=== PATIENT | female | born 1955 | race Caucasian/White ===

== ENCOUNTER 2025-01-10 06:12 | Day surgery (SDC) | payer MEDICARE ==
--- NOTE | 2025-01-03 11:34 | ELECTROCARDIOGRAPH REPORT ---
[facility] Test Date: 2025-01-03 Test Time: 11:29:27 Pat Name: GREG SOTO Department: [facility]-PRE-OP Patient ID: [id number] Room: Gender: F Business Excellence Leader: BREE : 1955 Requested By: WILLIAM SUNG Order Number: [id number] Reading MD: Dr. ILAN Sylvester Measurements Intervals [place] Rate: 71 P: 3 HI: 155 QRS: -33 QRSD: 102 T: 17 QT: 389 QTc: 423 Interpretive Statements Sinus rhythm Left axis deviation Electronically Signed On 01-03-2025 16:39:[address] ILAN Sylvester Please click the below link to view image of tracing.
[2025-01-03 11:52] LABS: MEAN PLATELET VOLUME 9.4 FL (7.4-10.4); PRE OP HEMATOCRIT 40.9 % (35.0-45.0); PRE OP HEMOGLOBIN 13.6 g/dL (12.0-16.0); PRE OP PLATELET COUNT 179 X10'3 (140-440); PRE OP WHITE BLOOD COUNT 3.4 10'3 (4.8-10.8); RED CELL DISTRIBUTION WIDTH 14.0 % (11.5-14.5)
[2025-01-03 12:06] LABS: CREATININE 0.74 MG/DL (0.40-0.90); PRE OP ALT 22 U/L (30-65); PRE OP ANION GAP 8 (8-16); PRE OP AST 17 U/L (10-37); PRE OP BILIRUB, TOTAL 0.6 MG/DL (0.0-1.0); PRE OP GLUCOSE 93 MG/DL (70-104); PRE OP POTASSIUM 3.8 MMOL/L (3.4-5.1); PRE OP SODIUM 143 MMOL/L (135-145); TOTAL CARBON DIOXIDE 28.4 MMOL/L (24-32); eGFR 77 ML/MIN
[2025-01-10] VITALS (10 sets, daily range): BP systolic 148–178; BP diastolic 85–96; PULSE 71–109; RESP 13–21; TEMP 99.4; O2SAT 95–100
[~2025-01-10] VITALS: Ht 160 cm; Wt 79.8 kg
[~2025-01-10 06:12] MED LIST: ACET-2971 PO; CHOL500044 PO; CO Q10 PO; LISI20TA28 PO; MAGN400C PO; MOME45CR3 TOP; ROSU10TA72 PO; SAM-E PO; ringers solution, lacted 1,000 ML IV SCH
[2025-01-10] MEDS ORDERED: LIDOcaine 1% (10mg/ml)w/preservative inj. 20ml MDV ONE (06:52)
[2025-01-10] MEDS ORDERED: methylene blue (5mg/ml) 50mg/10ml ampul IV ONE (06:52)
[2025-01-10] MEDS ORDERED: BUPIVAcaine 2.5mg/ml inj 50ml vial (contains preservative) ONE (06:53)
[2025-01-10] MEDS ORDERED: ringers solution, lacted 1,000 ML IV SCH (08:05)
[2025-01-10] MEDS ORDERED: hydrALAZINE 20mg/ml inj. IV PRN (08:05)
[2025-01-10] MEDS ORDERED: labetalol 20mg/4ml (5mg/ml) syringe IV PRN (08:05)
[2025-01-10] MEDS ORDERED: ondansetron/PF 4mg/2ml inj IV PRN (08:05)
[2025-01-10] MEDS ORDERED: morphine 4 MG/ML inj SYRINge IV PRN (08:05)
[2025-01-10] MEDS ORDERED: HYDROmorphone/PF 0.2 MG/ML SYRINGE IV PRN ×2 (08:05)
[2025-01-10] MEDS ORDERED: meperidine/PF 25mg/ml syringe IV PRN (08:05)
[2025-01-10] MEDS ORDERED: midazolam 1 mg/ML 2ml injection ONE (08:07)
[2025-01-10] MEDS: LIDOcaine 1% 30ml preserv. free vial IJ ONE (08:46)
[2025-01-10] MEDS ORDERED: ePHEDrine 50MG/ML INJ. ONE (09:18)
[2025-01-10] MEDS ORDERED: propofol inj 20 ML IV ONE ×2 (09:18→09:19)
[2025-01-10] MEDS ORDERED: LIDOcaine 2% (20mg/ml) 5ml vial ONE (09:18)
[2025-01-10] MEDS ORDERED: fentaNYL /PF 50mcg/ml 5ml ampule ONE (09:18)
[2025-01-10] MEDS ORDERED: 0.9 % SODIUM CHLORIDE 10 ML VIAL ONE (09:18)
[2025-01-10] MEDS ORDERED: dexamethasone sod phosphate 4mg/ml inj. ONE (09:18)
[2025-01-10] MEDS ORDERED: ondansetron/PF 4mg/2ml inj ONE (09:19)
--- NOTE | 2025-01-10 10:27 | OPERATIVE REPORT ---
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 William Sung Lunchroom Mother technology officer Anesthesiologist: Yamil Wray Type of Anesthesia: General Findings: CHARLEEN marker and top hat and CHARLEEN marker and suzanne marker detected on both specimen radiograph images Complications None Estimated Blood Loss: Less than 10 mL Specimen Removed: Left breast 3:00 CHARLEEN localized lumpectomy suture marked short superior, long lateral, double deep Left breast inferior margin suture anaya final margin Left breast 8:00 a.m. CHARLEEN localized lumpectomy suture marked short superior, long lateral, double deep Description of Procedure: Maria is a 69-year-old female who was diagnosed with ductal carcinoma in Situ, multiple multifocal. She was seen and evaluated in my office and informed consent was obtained for breast conservation. She is a Oriental orthodox so we discussed the risks of bleeding and the non blood product options for hemostasis. She had two CHARLEEN markers placed by the radiologist prior to surgery in preparation for excision. She was marked in the preoperative holding area on the left breast with my initials. She was taken to the OR and placed on the table in supine position with the arms extended. I scanned the 3:00 and 8:00 positions with the CHARLEEN probe and marked the skin. The patient was prepped and draped in a sterile fashion a time-out was performed and agreed upon. She had 2 g of Ancef that was administered. She also had SCDs in the lower extremities. I started with the 8:00 site and made a proposed incision at the inframammary crease far medially. Once the me the injection with 1% lidocaine I made the incision with a 10 blade extended with the Bovie electrocautery through the deep dermal layer. Noble's were placed on the incision site for visualization I dissected the superior and inferior flaps. I used the probe to identify the signal. Once the signal was obtained. I cauterized around that area. Based on my discussion with the radiologist the calcifications were approximately 1.5 cm medial to the bar marker and the CHARLEEN marker. I completely excised the area and hemostasis was achieved with Bovie electrocautery. The specimen was removed from the cavity and oriented with short stitch superior, long suture lateral, double suture deep. It was placed in the specimen radiograph board and an image was taken in the specimen radiograph machine. Two views were taken. The markers look like they were in adequate position. The specimen was placed in formalin. I turned my attention to the 3:00 site. 1% lidocaine was injected at the proposed incision site. I made my incision with a 10 blade. I dissected through the deep dermal layer with the cautery. Noble retractors were placed on the incision for visualization. I scanned the cavity with the probe and identified the signal. The top ladies' hat trimmer was medial to the CHARLEEN marker and calcifications. I completely excised the areas encompassing the CHARLEEN marker, calcifications and the top had marker. The specimen was secured to the specimen board and placed in the specimen radiograph. Both markers were retrieved. The CHARLEEN marker in the calcifications were closed with the inferior border. I additionally took an inferior margin for wider margin. The specimen was removed and the suture marked the final margin. The cavity was irrigated and hemostasis was achieved with Bovie electrocautery. Both cavities were closed with 3-0 Vicryl interrupted sutures and 4-0 Monocryl running subcuticular stitch. 0.25% Marcaine was injected at both sides. The areas were cleaned and Dermabond was placed over the incisions and dressings. Patient tolerated procedure well was taken to recovery in stable condition. All needle and sponge counts were correct. Counts repoted as correct: Yes WILLIAM SUNG DO Jan 10, 2025 10:27
[2025-01-10] MEDS: acetaminophen 1,000mg/100ml IV 100 ML IV PRN (10:40)
== END 2025-01-10 11:51 | disposition home or self-care (01) ==
LOC: PAS 06:12
PROVIDERS: ATTEND Surgery
DX: D05.12 Intraductal carcinoma in situ of left breast (principal); I10 Essential (primary) hypertension; M81.0 Age-related osteoporosis without current pathological fracture; M19.90 Unspecified osteoarthritis, unspecified site; E78.00 Pure hypercholesterolemia, unspecified; Z79.899 Other long term (current) drug therapy
CPT/HCPCS: 19301; 36415; 76098; 80053; 82948; 85025; 93005; A4215; A4618; A6258; A7000; J0131; J0690; J1100; J2003; J2250; J2405; J2704; J3010; J3490; J7030; J7120; Z7506; Z7508; Z7512; Z7610; 88307; Q9968